=== PATIENT | male | born 1985 | race Caucasian/White ===

== ENCOUNTER 2017-07-27 01:19 | Emergency (ER) | payer OTHER ==
[~2017-07-27] VITALS: Ht 195.6 cm; Wt 104.3 kg
--- NOTE | 2017-07-27 01:40 | NUR ---
BB MOTHER . PT C/O RIGHT HAND PAIN S/P GLF. PT AOX3 RR EVEN AND UNLABORED. NO SOB NOTED. NAD NOTED. NO NVD AT THIS TIME. PT NOT DIAPHORETIC. PT WAITING FOR MD DEE.
--- NOTE | 2017-07-27 01:56 | NUR ---
PT REFUSED TO BE SEEN BY MD. RISK AND BENEFITS EXPLAINED X3. PT STATES " I JUST WANT TO GO HOME AND SLEEP." PT AMBULATORY WITH STEADY GAIT. ACCOMPANIED BY MOTHER
--- NOTE | 2017-07-27 01:59 | NUR ---
Patient eloped from facility. ER MD notified.
[2017-07-27 02:03] VITALS: BP 147/100
== END 2017-07-27 02:04 | disposition left against medical advice (07) ==
LOC: ER 01:19
DX: Z53.21 Procedure and treatment not carried out due to patient leaving prior to being seen by health care provider (principal)
CPT/HCPCS: A4606; Z7610